=== PATIENT | male | born 1985 | race Caucasian/White ===

== ENCOUNTER 2017-04-01 20:56 | Emergency (ER) | payer OTHER ==
[~2017-04-01] VITALS: Ht 177.8 cm; Wt 104.3 kg
[2017-04-01] MEDS ORDERED: HYDROCODONE-AP1 EAC6 PO (22:51)
== END 2017-04-01 23:14 | disposition home or self-care (01) ==
LOC: ER 20:56
DX: S43.084A Other dislocation of right shoulder joint, initial encounter (principal); Z88.0 Allergy status to penicillin; W10.8XXA Fall (on) (from) other stairs and steps, initial encounter; Y93.89 Activity, other specified; Y92.89 Other specified places as the place of occurrence of the external cause; Y99.8 Other external cause status